=== PATIENT | female | born 1965 | race Caucasian/White ===

== ENCOUNTER 2016-10-11 15:35 | Emergency (ER) | payer OTHER ==
[~2016-10-11] VITALS: Ht 172.7 cm; Wt 127.0 kg
[2016-10-11 17:38] LABS: ABSOLUTE NEUTROPHILS 3.6 thou/uL (1.4-8.2); BASOPHILS 0.4 % (0.0-2.0); EOSINOPHILS 1.9 % (0.0-3.0); HEMATOCRIT 38.9 % (37.0-47.0); HEMOGLOBIN 13.1 gm/dL (12.0-15.0); LYMPHOCYTES 27.3 % (24.0-44.0); MCH 28.8 pg (26.0-34.0); MCHC 33.8 g/dL (28.0-37.0); MCV 85.1 fL (80.0-100.0); MONOCYTES 8.5 % (1.0-8.0); PLATELET COUNT 196 thou/uL (150-400); POLYS 61.9 % (36.0-66.0); RBC 4.57 mil/uL (4.20-5.00); RDW 13.5 % (10.5-14.5); WBC 5.8 thou/uL (4.0-11.0)
[2016-10-11 17:39] LABS: MANUAL DIFF NO
[2016-10-11 17:42] LABS: CALCIUM 8.4 mg/dL (8.5-10.1); CREATININE 0.8 mg/dL (0.6-1.0); POTASSIUM 3.4 mmol/L (3.5-5.1)
[2016-10-11 17:47] LABS: ALBUMIN 2.8 g/dL (3.4-5.0); TOTAL BILIRUBIN 0.3 mg/dL (<0.1-1.0); TOTAL PROTEIN 7.1 g/dL (6.4-8.2)
[2016-10-11] MEDS ORDERED: KEFLEX500 MG PO (19:04)
[2016-10-11] MEDS ORDERED: HYDROCODONE-AP1 EAC6 PO (19:04)
[2016-10-11 20:21] VITALS: BP 118/69
== END 2016-10-11 20:22 | disposition home or self-care (01) ==
LOC: ER 15:35
PROVIDERS: Nurse Practitioner Family
DX: I80.8 Phlebitis and thrombophlebitis of other sites (principal); L03.116 Cellulitis of left lower limb